=== PATIENT | female | born 1980 | race African-American/Black ===

== ENCOUNTER 2017-10-22 10:54 | Emergency (ER) | payer BC ==
[2017-10-22] MEDS ORDERED: Sodium Chloride 0.9% 1,000 ML IV ONE (11:37)
[2017-10-22] MEDS ORDERED: Ketorolac 30 MG/ML SDV IVPUSH ONE (11:37)
[2017-10-22] MEDS ORDERED: Sodium Chloride 0.9% 10 ML Syringe FLUSH PRN (11:37)
[2017-10-22] MEDS ORDERED: diphenhydrAMINE 50 MG/ML SDV IVPUSH ONE (11:37)
[2017-10-22] MEDS ORDERED: Metoclopramide 10 MG/2 ML SDV IVPUSH ONE (11:37)
--- NOTE | 2017-10-22 11:43 | EDM.PDOC ---
ED HPI GENERAL MEDICAL PROBLEM - General Chief Complaint: Neurological Problem Stated Complaint: DIZZINESS Time Seen by Provider: 10/22/17 11:30 Source of Information: Reports: Patient History Limitations: Reports: No Limitations - History of Present Illness INITIAL COMMENTS - FREE TEXT/NARRATIVE: 37 y/o F, previously healthy, presents with headache and dizziness. Started gradually 3 days ago. Describes it as room spinning dizziness. No provoking factor. Constant. Taking meclizine, no relief. No vomiting. No vision change. No focal weakness. Feels generally weak. No fever. No recent illness. No tinnitus or ear discomfort. No recent cough/nasal congestion. No head injury. Sent here by Brisa Ricks from clinic for evaluation. Headache Pain Score (Numeric/FACES): 3 - Related Data Allergies Allergy/AdvReac Type Severity Reaction Status Date / Time No Known Allergies Allergy Verified 10/22/17 11:07 Home Meds: Home Meds Ibuprofen [IMW: Ibuprofen] 800 mg PO TID PRN #30 tab 10/22/17 [Rx] Meclizine [Antivert] 12.5 mg PO Q4H PRN 10/22/17 [History] Past Medical History - Past Health History Medical/Surgical History: Denies Medical/Surgical History Social & Family History - Tobacco Use Smoking Status *Q: Never Smoker - Caffeine Use Caffeine Use: Reports: Coffee, Tea - Recreational Drug Use Recreational Drug Use: No ED ROS GENERAL - Review of Systems Review Of Systems: See Below Constitutional: Denies: Fever HEENT: Reports: Vertigo Respiratory: Denies: Shortness of Breath, Cough Cardiovascular: Denies: Chest Pain Endocrine: Reports: No Symptoms GI/Abdominal: Denies: Abdominal Pain : Reports: No Symptoms Musculoskeletal: Reports: No Symptoms Skin: Reports: No Symptoms Neurological: Reports: Dizziness, Headache Psychiatric: Reports: No Symptoms ED EXAM, NEURO - Physical Exam Exam: See Below Exam Limited By: No Limitations General Appearance: Alert, WD/WN, No Apparent Distress Eye Exam: Bilateral Eye: EOMI (no nystagmus), PERRL Ears: Normal External Exam Nose: Normal Inspection Throat/Mouth: Normal Inspection, Normal Oropharynx, Normal Voice, No Airway Compromise Head Exam: Atraumatic, Normocephalic Neck: Normal Inspection, Supple Respiratory/Chest: No Respiratory Distress, Lungs Clear, Normal Breath Sounds, No Accessory Muscle Use Cardiovascular: Normal Peripheral Pulses, Regular Rate, Rhythm, No Murmur GI/Abdominal: Soft, Non-Tender, No Distention Neurological: Alert, Normal Mood/Affect, Normal Dorsiflexion, CN II-XII Intact, Normal Plantar Flexion, No Motor/Sensory Deficits, Oriented x 3 Back Exam: Normal Inspection Extremities: Normal Inspection Psychiatric: Normal Affect, Normal Mood Skin Exam: Warm, Dry, Intact, Normal Color, No Rash Course - Vital Signs Last Recorded V/S: Last Vital Signs Temp 36.6 C 10/22/17 11:04 Pulse 78 10/22/17 11:04 Resp 20 10/22/17 11:04 BP 131/65 10/22/17 11:04 Pulse Ox 100 10/22/17 11:04 - Orders/Labs/Meds Orders: Active Orders 24 hr Category Date Time Status Peripheral IV Care [RC] . DIRECTED Care 10/22/17 11:37 Active Peripheral IV Care [RC] . DIRECTED Care 10/22/17 11:37 Active Peripheral IV Insertion Adult [OM.PC] Routine Oth 10/22/17 11:37 Ordered Labs: Laboratory Tests 10/22/17 10/22/17 Range/Units 11:40 11:40 WBC 6.40 (3.98-10.04) K/mm3 RBC 4.05 (3.98-5.22) M/mm3 Hgb 12.3 (11.2-15.7) gm/L Hct 37.6 (34.1-44.9) % MCV 92.8 (79.4-94.8) fl MCH 30.4 (25.6-32.2) pg MCHC 32.7 (32.2-35.5) g/dl RDW Std Deviation 45.9 (36.4-46.3) fL Plt Count 362 (182-369) K/mm3 MPV 8.7 L (9.4-12.3) fl Neut % (Auto) 43.6 (34.0-71.1) % Lymph % (Auto) 45.3 (19.3-51.7) % [place] % (Auto) 8.9 (4.7-12.5) % Eos % (Auto) 1.7 (0.7-5.8) Baso % (Auto) 0.5 (0.1-1.2) % Neut # (Auto) 2.79 (1.56-6.13) K/mm3 Lymph # (Auto) 2.90 (1.18-3.74) K/mm3 [place] # (Auto) 0.57 H (0.24-0.36) K/mm3 Eos # (Auto) 0.11 (0.04-0.36) K/mm3 Baso # (Auto) 0.03 (0.01-0.08) K/mm3 Sodium 141 (136-145) mEq/L Potassium 4.0 (3.5-5.1) mEq/L Chloride 106 (98-107) mEq/L Carbon Dioxide 26 (21-32) mEq/L Anion Gap 13.0 (5-15) BUN 12 (7-18) mg/dL Creatinine 0.9 (0.55-1.02) mg/dL Est Cr Clr Drug Dosing 72.47 mL/min Estimated GFR (MDRD) > 60 (>60) mL/min BUN/Creatinine Ratio 13.3 L (14-18) Glucose 88 (74-106) mg/dL Calcium 8.7 (8.5-10.1) mg/dL Magnesium 2.1 (1.8-2.4) mg/dl Total Bilirubin 0.2 (0.2-1.0) mg/dL AST 23 (15-37) U/L ALT 33 (14-59) U/L Alkaline Phosphatase 59 (46-116) U/L Total Protein 7.1 (6.4-8.2) g/dl Albumin 3.6 (3.4-5.0) g/dl Globulin 3.5 gm/dL Albumin/Globulin Ratio 1.0 (1-2) Meds: Medications Discontinued Medications Generic Name Dose Route Start Last Admin Trade Name Freq PRN Reason Stop Dose Admin Diphenhydramine HCl 25 mg 10/22/17 11:37 10/22/17 11:51 Benadryl IVPUSH 10/22/17 11:38 25 mg ONETIME ONE Administration Sodium Chloride 1,000 mls @ 1,000 mls/hr 10/22/17 11:37 10/22/17 11:49 Normal Saline IV 10/22/17 12:36 1,000 mls/hr ONETIME ONE Administration Ketorolac Tromethamine 30 mg 10/22/17 11:37 10/22/17 11:51 Toradol IVPUSH 10/22/17 11:38 30 mg ONETIME ONE Administration Metoclopramide HCl 10 mg 10/22/17 11:37 10/22/17 11:49 Reglan IVPUSH 10/22/17 11:38 10 mg ONETIME ONE Administration Sodium Chloride 10 ml 10/22/17 11:37 10/22/17 11:51 Saline Flush FLUSH 10 ml ASDIRECTED PRN Administration Keep Vein Open - Re-Assessments/Exams Free Text/Narrative Re-Assessment/Exam: 10/22/17 17:46 Labs show normal CBC and chemistry. She feels much better after migraine cocktail with toradol, reglan, benadryl, and IVF. Her headache has resolved. She 'd like to go home. Encouraged her to f/u with her PCP and return if she feels worse. Departure - Departure Time of Disposition: 13:19 Disposition: Home, Self-Care 01 Clinical Impression: Dizziness Headache Qualifiers: Headache type: unspecified Headache chronicity pattern: acute headache Intractability: not intractable Qualified Code(s): R51 - Headache - Discharge Information Prescriptions: Ibuprofen [IMW: Ibuprofen] 800 mg PO TID PRN #30 tab PRN Reason: Pain Instructions: General Headache Without Cause, Dizziness, [id number] Referrals: Rhoda Ricks P[employer]OVER [Primary Care Provider] - Forms: ED Department Discharge Additional Instructions: 1. Take ibuprofen as needed for headache 2. Follow up with your primary care provider for further care 3. Return to the ED if you have severe headache or other concerning symptoms - My Orders Last 24 Hours: My Active Orders 10/22/17 11:37 Peripheral IV Care [RC] . DIRECTED Peripheral IV Care [RC] . DIRECTED Peripheral IV Insertion Adult [OM.PC] Routine - Assessment/Plan Last 24 Hours: My Active Orders 10/22/17 11:37 Peripheral IV Care [RC] . DIRECTED Peripheral IV Care [RC] . DIRECTED Peripheral IV Insertion Adult [OM.PC] Routine
== END 2017-10-22 13:44 | disposition home or self-care (01) ==
LOC: JD.ED 10:54
DX: R51 Headache (principal); R42 Dizziness and giddiness
CPT/HCPCS: 36415; 80053; 83735; 85025; 96361; 96374; 96375; 99284; J1200; J1885; J2765; J7040; J7050

== ENCOUNTER 2020-05-06 11:30 | Emergency (ER) | payer BC ==
[2020-05-06] MEDS ORDERED: FLU VACC QS2020-21(6MOS UP)/PF 60 MCG/0.5 ML SYRINGE IM ONE (12:45)
[2020-05-06] MEDS ORDERED: Sodium Chloride 0.9% 1,000 ML IV STA (13:34)
[2020-05-06] MEDS ORDERED: Ketorolac 30 MG/ML SDV IVPUSH ONE (13:34)
--- NOTE | 2020-05-06 14:14 | EDM.PDOC ---
ED HPI GENERAL MEDICAL PROBLEM - General Chief Complaint: Headache Stated Complaint: HEADACHE,WEAKNESS,DIZZINESS Time Seen by Provider: 05/06/20 13:02 Source of Information: Reports: Patient, RN Notes Reviewed History Limitations: Reports: No Limitations - History of Present Illness INITIAL COMMENTS - FREE TEXT/NARRATIVE: Patient is a 40-year-old female presenting to the emergency department with complaints of intermittent headaches with dizziness as well as weakness over the last 2 weeks. States that headaches do not occur daily, however she has been having them every few days. She denies any vision changes. She is had no recent head injuries. She has no other symptoms including respiratory complaints, sinus pressure, ear pain, nausea, vomiting, or diarrhea. She is had no fevers. Denies any known sick contacts. Denies possibility of . Denies any history of migraines. She states that she does have a rash within her hair which she has been seen for in the past and prescribed a therapeutic shampoo. She states when she uses a shampoo, it does resolve, however when she stops it returns. It has been over a year since she was last treated with this. She feels this may be contributing to her headaches. Headache Pain Score (Numeric/FACES): 5 - Related Data Allergies Allergy/AdvReac Type Severity Reaction Status Date / Time No Known Allergies Allergy Verified 05/06/20 12:33 Home Meds: Home Meds Ibuprofen [IMW: Ibuprofen] 800 mg PO TID PRN #30 tab 10/22/17 [Rx] Clobetasol Propionate 118 ml TP DAILY #1 shampoo 05/06/20 [Rx] Past Medical History - Past Health History Medical/Surgical History: Denies Medical/Surgical History [employer] History: Reports: Neurological History: Reports: Headaches, Chronic - Past Surgical History Female Surgical History: Reports: Section Social & Family History - Family History Family Medical History: No Pertinent Family History - Tobacco Use Tobacco Use Status *Q: Never Tobacco User - Caffeine Use Caffeine Use: Reports: None - Recreational Drug Use Recreational Drug Use: No ED ROS GENERAL - Review of Systems Review Of Systems: See Below Constitutional: Reports: No Symptoms. Denies: Fever, Chills HEENT: Reports: Other (white, itchy scalp lesions). Denies: Vision Change Respiratory: Reports: No Symptoms Cardiovascular: Reports: No Symptoms Endocrine: Reports: No Symptoms GI/Abdominal: Reports: No Symptoms : Reports: No Symptoms Musculoskeletal: Reports: No Symptoms Skin: Reports: No Symptoms Neurological: Reports: Dizziness, Headache. Denies: Confusion, Paresthesia Psychiatric: Reports: No Symptoms Hematologic/Lymphatic: Reports: No Symptoms Immunologic: Reports: No Symptoms - Physical Exam Exam: See Below Exam Limited By: No Limitations General Appearance: Alert, WD/WN, No Apparent Distress Eye Exam: Bilateral Eye: PERRL Head Exam: Other (thick, white psorotic plaques throughout scalp) Respiratory/Chest: No Respiratory Distress, Lungs Clear, Normal Breath Sounds, No Accessory Muscle Use, Chest Non-Tender Cardiovascular: Normal Peripheral Pulses, Regular Rate, Rhythm, No Edema, No Gallop, No JVD, No Murmur, No Rub (Female) Exam: Normal External Exam, Normal Speculum Exam, Normal Bimanual Exam Neuro Exam (Abbreviated): Alert, Oriented, CN II-XII Intact, Normal Cognition, Normal Gait, Normal Reflexes, No Motor/Sensory Deficits Psychiatric: Normal Affect, Normal Mood Skin Exam: Warm, Dry, Intact, Normal Color, No Rash Course - Vital Signs Last Recorded V/S: Last Vital Signs Temp 98.8 F 05/06/20 12:30 Pulse 79 05/06/20 12:30 Resp 18 05/06/20 12:30 BP 113/73 05/06/20 12:30 Pulse Ox 98 05/06/20 12:30 - Orders/Labs/Meds Labs: Laboratory Tests 05/06/20 05/06/20 05/06/20 Range/Units 13:55 13:59 13:59 WBC 5.74 (3.98-10.04) K/mm3 RBC 3.84 L (3.98-5.22) M/mm3 Hgb 11.5 (11.2-15.7) gm/dl Hct 36.3 (34.1-44.9) % MCV 94.5 (79.4-94.8) fl MCH 29.9 (25.6-32.2) pg MCHC 31.7 L (32.2-35.5) g/dl RDW Std Deviation 45.0 (36.4-46.3) fL Plt Count 421 H (182-369) K/mm3 MPV 8.9 L (9.4-12.3) fl Neut % (Auto) 55.1 (34.0-71.1) % Lymph % (Auto) 31.2 (19.3-51.7) % [place] % (Auto) 11.1 (4.7-12.5) % Eos % (Auto) 1.9 (0.7-5.8) Baso % (Auto) 0.5 (0.1-1.2) % Neut # (Auto) 3.16 (1.56-6.13) K/mm3 Lymph # (Auto) 1.79 (1.18-3.74) K/mm3 [place] # (Auto) 0.64 H (0.24-0.36) K/mm3 Eos # (Auto) 0.11 (0.04-0.36) K/mm3 Baso # (Auto) 0.03 (0.01-0.08) K/mm3 Sodium 139 (136-145) mEq/L Potassium 4.0 (3.5-5.1) mEq/L Chloride 103 (98-107) mEq/L Carbon Dioxide 28 (21-32) mEq/L Anion Gap 12.0 (5-15) BUN 11 (7-18) mg/dL Creatinine 0.9 (0.55-1.02) mg/dL Est Cr Clr Drug Dosing 70.32 mL/min Estimated GFR (MDRD) > 60 (>60) mL/min BUN/Creatinine Ratio 12.2 L (14-18) Glucose 92 (74-106) mg/dL Calcium 8.6 (8.5-10.1) mg/dL Total Bilirubin 0.2 (0.2-1.0) mg/dL AST 19 (15-37) U/L ALT 26 (14-59) U/L Alkaline Phosphatase 60 (46-116) U/L C-Reactive Protein < 0.2 (<1.0) mg/dL Total Protein 7.2 (6.4-8.2) g/dl Albumin 3.5 (3.4-5.0) g/dl Globulin 3.7 gm/dL Albumin/Globulin Ratio 1.0 (1-2) HCG, Qual Negative (NEGATIVE) Urine Color (Yellow) Urine Appearance (Clear) Urine pH (5.0-8.0) Ur Specific [place] (1.005-1.030) Urine Protein (Negative) Urine Glucose (UA) (Negative) Urine Ketones (Negative) Urine Occult Blood (Negative) Urine Nitrite (Negative) Urine Bilirubin (Negative) Urine Urobilinogen (0.2-1.0) Ur Leukocyte Esterase (Negative) Urine RBC (0-5) /hpf Urine WBC (0-5) /hpf Ur Squamous Epith Cells (0-5) /hpf Urine Bacteria (FEW) /hpf Urine Mucus (FEW) /hpf 05/06/20 Range/Units 15:05 WBC (3.98-10.04) K/mm3 RBC (3.98-5.22) M/mm3 Hgb (11.2-15.7) gm/dl Hct (34.1-44.9) % MCV (79.4-94.8) fl MCH (25.6-32.2) pg MCHC (32.2-35.5) g/dl RDW Std Deviation (36.4-46.3) fL Plt Count (182-369) K/mm3 MPV (9.4-12.3) fl Neut % (Auto) (34.0-71.1) % Lymph % (Auto) (19.3-51.7) % [place] % (Auto) (4.7-12.5) % Eos % (Auto) (0.7-5.8) Baso % (Auto) (0.1-1.2) % Neut # (Auto) (1.56-6.13) K/mm3 Lymph # (Auto) (1.18-3.74) K/mm3 [place] # (Auto) (0.24-0.36) K/mm3 Eos # (Auto) (0.04-0.36) K/mm3 Baso # (Auto) (0.01-0.08) K/mm3 Sodium (136-145) mEq/L Potassium (3.5-5.1) mEq/L Chloride (98-107) mEq/L Carbon Dioxide (21-32) mEq/L Anion Gap (5-15) BUN (7-18) mg/dL Creatinine (0.55-1.02) mg/dL Est Cr Clr Drug Dosing mL/min Estimated GFR (MDRD) (>60) mL/min BUN/Creatinine Ratio (14-18) Glucose (74-106) mg/dL Calcium (8.5-10.1) mg/dL Total Bilirubin (0.2-1.0) mg/dL AST (15-37) U/L ALT (14-59) U/L Alkaline Phosphatase (46-116) U/L C-Reactive Protein (<1.0) mg/dL Total Protein (6.4-8.2) g/dl Albumin (3.4-5.0) g/dl Globulin gm/dL Albumin/Globulin Ratio (1-2) HCG, Qual (NEGATIVE) Urine Color Yellow (Yellow) Urine Appearance Clear (Clear) Urine pH 6.5 (5.0-8.0) Ur Specific [place] 1.025 (1.005-1.030) Urine Protein Negative (Negative) Urine Glucose (UA) Negative (Negative) Urine Ketones Negative (Negative) Urine Occult Blood Negative (Negative) Urine Nitrite Negative (Negative) Urine Bilirubin Negative (Negative) Urine Urobilinogen 0.2 (0.2-1.0) Ur Leukocyte Esterase Negative (Negative) Urine RBC 0-5 (0-5) /hpf Urine WBC 0-5 (0-5) /hpf Ur Squamous Epith Cells 20-30 H (0-5) /hpf Urine Bacteria Few (FEW) /hpf Urine Mucus Moderate H (FEW) /hpf Meds: Medications Discontinued Medications Generic Name Dose Route Start Last Admin Trade Name Luisq PRN Reason Stop Dose Admin Sodium Chloride 1,000 mls @ 999 mls/hr 05/06/20 13:34 05/06/20 13:51 Normal Saline IV 05/06/20 14:34 999 mls/hr NOW STA Administration Influenza Virus Vaccine 60 mcg 05/06/20 12:45 05/06/20 16:15 Fluzone Quad [id number] Syringe IM 05/06/20 12:46 Not Given .ONCE ONE Ketorolac Tromethamine 30 mg 05/06/20 13:34 05/06/20 13:51 Toradol IVPUSH 05/06/20 13:35 30 mg ONETIME ONE Administration - Re-Assessments/Exams Free Text/Narrative Re-Assessment/Exam: 40-year-old female presenting to the emergency department with complaints of a thick scaly rash on her scalp, intermittent headaches, and dizziness. She has a history of scalp psoriasis and has been prescribed clobetasol in the past. States this works quite well, however she is out of it. She complains of frequent headaches over the last few weeks associated dizziness. I have ordered a CT scan of the head as well as some baseline lab work. I will give her 1 L bolus of normal saline and Toradol 30 mg IV. 05/06/20 15:47 Patient's work-up was grossly unremarkable. CT scan of the head showed no acute abnormalities. Blood work was normal. Patient is feeling better after the medications given. I will send a prescription for colestipol shampoo. Recommend follow-up in the clinic as needed. Discharge instructions as documented. Departure - Departure Time of Disposition: 15:48 Disposition: Home, Self-Care 01 Condition: Good Clinical Impression: Scalp psoriasis Headache Qualifiers: Headache type: unspecified Headache chronicity pattern: acute headache Intractability: not intractable Qualified Code(s): R51 - Headache - Discharge Information *PRESCRIPTION DRUG MONITORING PROGRAM REVIEWED*: No *COPY OF PRESCRIPTION DRUG MONITORING REPORT IN PATIENT DEANNA: No Prescriptions: Clobetasol Propionate 118 ml TP DAILY #1 shampoo Instructions: General Headache Without Cause, [id number], Psoriasis, [id number] Referrals: PCP,None [Primary Care Provider] - Forms: ED Department Discharge Additional Instructions: You were seen in the ER today for intermittent headaches, dizziness, and a scaly rash on your scalp. Work-up included blood work, and a CT scan of your head. Results of the work-up were found to be normal. While in the ER, you received a liter of IV fluids and Toradol for pain. Recommend that you go home and rest. Continue to use Tylenol or ibuprofen as needed for pain and discomfort. A prescription for clobetasol shampoo has [facility] to [facility]. Uses medication as prescribed for up to 4 weeks only. Recommend follow-up with your primary care provider as needed. Return to ER as needed. Sepsis Event Note (ED) - Evaluation Sepsis Screening Result: No Definite Risk
--- NOTE | 2020-05-06 15:14 | CT ---
PROCEDURE INFORMATION: Exam: CT Head Without Contrast Exam date and time: 05/06/2020 2:37 PM Age: 40 years old Clinical indication: Pain; Dizziness; Headache not specified TECHNIQUE: Imaging protocol: Computed tomography of the head without contrast. Radiation optimization: All CT scans at this facility use at least one of these dose optimization techniques: automated exposure control; mA and/or kV adjustment per patient size (includes targeted exams where dose is matched to clinical indication); or iterative reconstruction. COMPARISON: No relevant prior studies available. FINDINGS: Brain: No hemorrhage, mass effect or midline shift. Cerebral ventricles: No ventriculomegaly. Bones/joints: No acute fracture. Paranasal sinuses: There is opacification of the right sphenoid sinus. Mastoid air cells: Visualized mastoid air cells are well aerated. Soft tissues: No acute changes IMPRESSION: 1. No hemorrhage, mass effect or midline shift. 2. There is opacification of the right sphenoid sinus. Thank you for allowing us to participate in the care of your patient. Dictated and Authenticated by: Adal Ricks DO 05/06/2020 4:10 PM Central Time ([place] & [place]) [facility]
== END 2020-05-06 16:20 | disposition home or self-care (01) ==
LOC: JD.ED 11:30
DX: L40.8 Other psoriasis (principal); R51.9 Headache, unspecified; R42 Dizziness and giddiness
CPT/HCPCS: 36415; 70450; 80053; 81001; 84703; 85025; 86140; 96374; 99284; J1885; J7030

== ENCOUNTER 2020-10-29 12:01 | Emergency (ER) | payer BC ==
[2020-10-29] MEDS ORDERED: Sodium Chloride 0.9% 1,000 ML IV STA (12:39)
[2020-10-29] MEDS ORDERED: Ondansetron 4 MG/2 ML SDV IVPUSH ONE (12:39)
[2020-10-29] MEDS ORDERED: HYDROmorphone 0.5 MG/0.5 ML Syringe IVPUSH ONE (12:39)
[2020-10-29] MEDS ORDERED: Diatrizoate Meglumine/Diatrizoate Sodium 37% 120 ML Bottle PO ONE (14:00)
[2020-10-29] MEDS ORDERED: Sodium Chloride 0.9% 10 ML Syringe FLUSH SCH (14:00)
[2020-10-29] MEDS ORDERED: Iopamidol 612 MG/ML 100 ML Bottle IVPUSH ONE (14:00)
--- NOTE | 2020-10-29 14:53 | EDM.PDOC ---
ED HPI GENERAL MEDICAL PROBLEM - General Chief Complaint: Back Pain or Injury Stated Complaint: PAIN MANAGEMENT SENT FROM [facility] Time Seen by Provider: 10/29/20 12:35 Source of Information: Reports: Patient, Provider, RN Notes Reviewed History Limitations: Reports: No Limitations - History of Present Illness INITIAL COMMENTS - FREE TEXT/NARRATIVE: Patient is a 40-year-old female presenting to the emergency department at the request of her primary care provider, Leydi Ricks NP, for left lateral abdominal and back pain. She was evaluated in the clinic prior to coming here and found to have liver lesions on a noncontrast CT of her abdomen and pelvis. Hemoglobin was also found to be slightly low at 10.6 and CRP was elevated at 4.8. Urinalysis completed in the clinic showed 1+ protein, trace ketones, trace intact occult blood, trace leukocyte esterase, 5-10 WBCs, 10-20 squamous epithelial cells and moderate mucus. Radiologist recommended a contrast CT of her chest abdomen pelvis. She was also sent here for pain control. Patient reports that she has been having this discomfort for approximately last 2 weeks. Denies any urinary symptoms or blood in her urine. She has had no nausea, vomiting, or diarrhea. She has not been taking anything for pain. Patient denies any history of smoking, recreational drug use, or alcohol abuse. 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 Denies: Fever, Chills HEENT: Reports: No Symptoms Respiratory: Reports: No Symptoms Cardiovascular: Reports: No Symptoms Endocrine: Reports: No Symptoms GI/Abdominal: Reports: No Symptoms, Abdominal Pain (left upper lateral). Denies: Diarrhea, Nausea, Vomiting : Reports: No Symptoms Musculoskeletal: Reports: Back Pain (mid back pain) Skin: Reports: No Symptoms Neurological: Reports: No Symptoms Psychiatric: Reports: No Symptoms Hematologic/Lymphatic: Reports: No Symptoms Immunologic: Reports: No Symptoms ED EXAM, GENERAL - Physical Exam Exam: See Below Exam Limited By: No Limitations General Appearance: Alert, WD/WN, No Apparent Distress Respiratory/Chest: No Respiratory Distress, Lungs Clear, Normal Breath Sounds, No Accessory Muscle Use, Chest Non-Tender Cardiovascular: Normal Peripheral Pulses, Regular Rate, Rhythm, No Edema, No Gallop, No JVD, No Murmur, No Rub GI/Abdominal: Normal Bowel Sounds, Soft, No Organomegaly, No Distention, No Abnormal Bruit, No Mass, Tender (left, upper, lateral abdomen) Back Exam: Normal Inspection, Full Range of Motion, Vertebral Tenderness (T10 - T12) Neurological: Alert, Oriented, CN II-XII Intact, Normal Cognition, Normal Gait, Normal Reflexes, No Motor/Sensory Deficits Psychiatric: Normal Affect, Normal Mood Skin Exam: Warm, Dry, Intact, Normal Color, No Rash Course - Vital Signs Last Recorded V/S: Last Vital Signs Temp 99.2 F 10/29/20 14:30 Pulse 72 10/29/20 14:30 Resp 16 10/29/20 14:30 BP 108/75 10/29/20 14:30 Pulse Ox 98 10/29/20 14:30 - Orders/Labs/Meds Orders: Active Orders 24 hr Category Date Time Status Sodium Chloride 0.9% [Normal Saline] 1,000 ml Med 10/29/20 12:39 Active IV NOW Sodium Chloride 0.9% [Saline Flush] Med 10/29/20 14:00 Active 10 ml FLUSH ASDIRECTED Medication Orders Sodium Chloride (Normal Saline) 1,000 mls @ 150 mls/hr IV NOW STA Stop: 10/29/20 19:18 Last Admin: 10/29/20 13:45 Dose: 150 mls/hr Documented by: RADHA Sodium Chloride (Sodium Chloride 0.9% 10 Ml Syringe) 10 ml FLUSH ASDIRECTED TWIN Last Admin: 10/29/20 14:12 Dose: 10 ml Documented by: SAMM Labs: Laboratory Tests 10/29/20 Range/Units 10:16 GGT 74 H (5-55) U/L Meds: Medications Generic Name Dose Route Start Last Admin Trade Name Freq PRN Reason Stop Dose Admin Sodium Chloride 1,000 mls @ 150 mls/hr 10/29/20 12:39 10/29/20 13:45 Normal Saline IV 10/29/20 19:18 150 mls/hr NOW STA Administration Sodium Chloride 10 ml 10/29/20 14:00 10/29/20 14:12 Sodium Chloride 0.9% 10 Ml Syringe FLUSH 10 ml ASDIRECTED TWIN Administration Discontinued Medications Generic Name Dose Route Start Last Admin Trade Name Freq PRN Reason Stop Dose Admin Diatrizoate Meglum/Diatrizoate Sod 120 ml 10/29/20 14:00 10/29/20 14:11 Diatrizoate Meglumine/Diatrizoate Sodium 37% 120 Ml Bottle PO 10/29/20 14:01 45 ml ONETIME ONE Administration Hydromorphone HCl 0.5 mg 10/29/20 12:39 10/29/20 13:48 Hydromorphone 0.5 Mg/0.5 Ml Syringe IVPUSH 10/29/20 12:40 0.5 mg ONETIME ONE Administration Iopamidol 100 ml 10/29/20 14:00 10/29/20 14:11 Iopamidol 612 Mg/Ml 100 Ml Bottle IVPUSH 10/29/20 14:01 100 ml ONETIME ONE Administration Ondansetron HCl 4 mg 10/29/20 12:39 10/29/20 13:46 Ondansetron 4 Mg/2 Ml Sdv IVPUSH 10/29/20 12:40 4 mg ONETIME ONE Administration - Re-Assessments/Exams Free Text/Narrative Re-Assessment/Exam: Patient is a 40-year-old female presenting to the emergency department after being referred by Leydi Henriquez NP. She presented to her with abdominal pain and back pain and was found to have lesions on her liver on a noncontrast CT. I have ordered CT scan of the chest abdomen pelvis with IV and oral contrast as well as IV fluids of NS at 150 mils per hour Dilaudid 0.5 mg IV, and Zofran 4 mg IV. 10/29/20 16:03 Patient reports that her pain has improved. CT scan of the chest abdomen pelvis with contrast impression as follows 1. Multiple nodules within both sides of the chest. Largest nodule measures 1.5 cm. Given the liver findings on prior noncontrast CT abdomen and pelvis study, these findings are felt compatible with metastatic lesions 2. Slight left axillary adenopathy. Impression no CT abdomen pelvis as follows 1. Numerous lesions within the right and left lobes of the liver compatible with multiple metastatic lesions. 2. Several slightly prominent lymph nodes within the retroperitoneum most likely metastatic. 3. Prominence within the pancreatic head. Given liver lesions and pulmonary lesions, this finding is highly suspicious for pancreatic head neoplasm. Questionable thickening of the wall of the duodenal sweep is also noted. 4. Other findings believed to be incidental as noted above. Results discussed with patient. I will discharge her home with a prescription for Percocet for pain. I have spoke to her primary care, Leydi Henriquez NP. She will see her in the clinic tomorrow morning at 9 AM to get her set up with an interventional radiology for biopsies and further management. Patient is in agreement with this. Discharge instructions as documented. Departure - Departure Time of Disposition: 16:06 Disposition: Home, Self-Care 01 Condition: Fair Clinical Impression: Malignant neoplasm metastatic to pancreas - Discharge Information *PRESCRIPTION DRUG MONITORING PROGRAM REVIEWED*: No *COPY OF PRESCRIPTION DRUG MONITORING REPORT IN PATIENT DEANNA: No Prescriptions: Acetaminophen/oxyCODONE [Percocet 325-5 MG] 1 each PO Q4H PRN #20 tab PRN Reason: Pain Referrals: Leydi Henriquez NP [Primary Care Provider] - Forms: ED Department Discharge Additional Instructions: You were seen in the emergency department today for evaluation and back pain as well as lesion seen on a CT scan in the clinic. CT scans of the chest abdomen pelvis were completed in the ER and unfortunately do show numerous lesions within your liver, lungs, as well as likely neoplasm of the pancreatic head. Unfortunately these findings are likely consistent with pancreatic cancer with metastases to these other organs. You have been discharged home on Percocet for pain. Take this medication as prescribed for pain. Do not drive or work for 12 hours after taking his as it can be sedating. A follow-up appointment has been scheduled with Leydi Henriquez NP from 9:00 tomorrow morning. It is imperative that you attend this appointment for ongoing management of this condition. Return to ER for any new or worsening symptoms of concern. Sepsis Event Note (ED) - Evaluation Sepsis Screening Result: No Definite Risk - Focused Exam Vital Signs: Vital Signs Temp Pulse Resp BP Pulse Ox 10/29/20 14:30 99.2 F 72 16 108/75 98 10/29/20 12:26 99.4 F 90 18 116/75 97 - My Orders Last 24 Hours: My Active Orders 10/29/20 12:39 Sodium Chloride 0.9% [Normal Saline] 1,000 ml IV NOW 10/29/20 14:00 Sodium Chloride 0.9% [Saline Flush] 10 ml FLUSH ASDIRECTED - Assessment/Plan Last 24 Hours: My Active Orders 10/29/20 12:39 Sodium Chloride 0.9% [Normal Saline] 1,000 ml IV NOW 10/29/20 14:00 Sodium Chloride 0.9% [Saline Flush] 10 ml FLUSH ASDIRECTED
--- NOTE | 2020-10-29 15:32 | CT ---
CT chest Technique: Multiple axial sections through the chest were obtained. Intravenous contrast was utilized. Reconstructed coronal and sagittal images were obtained. Comparison: No prior chest imaging is available. Findings: Thoracic aorta shows no aneurysm. Mediastinum shows no definite abnormality. No pericardial thickening is appreciated. Scattered small nodules are seen within both upper lungs. Nodules are noted within the right middle lobe and lingula as well as within both lower lobes. Largest nodule is located within the right lower lung measuring 1.5 cm. No definite acute parenchymal change is otherwise seen. Left axillary region shows several slightly enlarged lymph nodes. Largest lymph node measures 1.7 cm. Bone window settings were reviewed which show no acute osseous abnormality. Impression: 1. Multiple nodules within both sides of the chest. Largest nodule measures 1.5 cm. Given the liver findings on prior noncontrast CT abdomen and pelvis study, these findings are felt compatible with metastatic lesions. 2. Slight left axillary adenopathy. 3. No additional abnormality is seen. Diagnostic code #9 CT abdomen and pelvis Technique: Multiple axial sections were obtained from above the dome of the diaphragm inferiorly through the pubic symphysis. Intravenous and oral contrast was utilized. Reconstructed coronal and sagittal images were obtained. Delayed images were also obtained. Comparison: Prior noncontrast CT abdomen and pelvis study performed earlier on the same day. Findings: Numerous liver nodules are seen within the right and left lobes. Largest abnormality is within the posterior right lobe and an inferior location measuring approximately 4.2 x 3.9 cm. Free fluid is seen around the gallbladder. Uncertain as to etiology. Spleen size is normal. Adrenal glands showed with no hydronephrosis or mass. Kidneys show symmetric contrast enhancement. Parapelvic cyst is noted within the right kidney. Delayed images show contrast within the right and left ureters as well as within the bladder. There is fullness being seen within the head of the pancreas. Given the findings within the liver and chest this is very suspicious for a pancreatic mass. This finding measures approximately 4.0 cm in size. Questionable thickening within the duodenal sweep is noted. Several slightly prominent retroperitoneal lymph nodes are seen which are believed to be abnormal. No pelvic mass or adenopathy is appreciated. Bone window settings were reviewed and show no acute osseous abnormality. Impression: 1. Numerous lesions within the right and left lobes of the liver compatible with multiple metastatic lesions. 2. Several slightly prominent lymph nodes within the retroperitoneum most likely metastatic. 3. Prominence within the pancreatic head. Given liver lesions and pulmonary lesions, this finding is highly suspicious for pancreatic head neoplasm. Questionable thickening of the wall of the duodenal sweep is also noted. 4. Other findings believed to be incidental as noted above. Diagnostic code #9
== END 2020-10-29 16:25 | disposition home or self-care (01) ==
LOC: JD.ED 12:01
DX: C25.9 Malignant neoplasm of pancreas, unspecified (principal)
CPT/HCPCS: 36415; 71260; 74177; 82977; 96374; 96375; 99284; J1170; J2405; J7030; Q9963; Q9967

== ENCOUNTER 2020-11-04 09:03 | Emergency (ER) | payer BC ==
[2020-11-04] MEDS ORDERED: Ondansetron 4 MG/2 ML SDV IVPUSH ONE (09:37)
[2020-11-04] MEDS ORDERED: HYDROmorphone 1 MG/ML Syringe IVPUSH ONE (09:37)
[2020-11-04] MEDS ORDERED: Sodium Chloride 0.9% 1,000 ML IV ONE (09:37)
--- NOTE | 2020-11-04 09:38 | EDM.PDOC ---
ED HPI GENERAL MEDICAL PROBLEM - General Chief Complaint: Back Pain or Injury Stated Complaint: BACK PAIN Time Seen by Provider: 11/04/20 09:34 Source of Information: Reports: Patient History Limitations: Reports: No Limitations - History of Present Illness INITIAL COMMENTS - FREE TEXT/NARRATIVE: Presents with persistent right flank pain was seen and evaluated a week ago and was told that she might have cancer. She was given Percocet and has helped some of the pain but it persists. Nothing makes the pain better or worse very constant does not radiate into the groin no burning pain or blood in the urine denies fevers chills or sweats no coughing cold symptoms or chest pain. Lack of appetite today and not sleeping very well. History of 3 C-sections with 3 children otherwise no history of any major medical problems. Middle Back Pain Score (Numeric/FACES): 7 - Related Data Allergies Allergy/AdvReac Type Severity Reaction Status Date / Time No Known Allergies Allergy Verified 11/04/20 09:22 Home Meds: Home Meds . 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 Denies: Shortness of Breath, Cough Cardiovascular: Denies: Chest Pain, Dyspnea on Exertion, Lightheadedness, Palpitations GI/Abdominal: Reports: Abdominal Pain, Decreased Appetite. Denies: Constipation, Diarrhea, Nausea, Vomiting : Reports: Flank Pain. Denies: Dysuria, Frequency, Hematuria, Urgency Musculoskeletal: Reports: Back Pain Skin: Reports: No Symptoms. Denies: Rash Neurological: Reports: No Symptoms. Denies: Headache, Numbness, Paresthesia Psychiatric: Reports: No Symptoms ED EXAM,LOWER BACK PAIN/INJURY - Physical Exam Exam: See Below Exam Limited By: No Limitations General Appearance: Alert, WD/WN, Moderate Distress Throat/Mouth: Normal Oropharynx Head: Atraumatic Neck: Normal Inspection Respiratory/Chest: No Respiratory Distress, Lungs Clear, Normal Breath Sounds Cardiovascular: Normal Peripheral Pulses, Regular Rate, Rhythm, No Edema GI/Abdominal: Normal Bowel Sounds, Soft, Other (Right flank tenderness right upper quadrant pain no rebound rigidity no masses noted no hepatomegaly noted.) Back Exam: CVA Tenderness (R) Extremities: Normal Inspection, No Pedal Edema Neurological: Alert, Normal Mood/Affect Psychiatric: Anxious Skin Exam: Warm Course - Vital Signs Text/Narrative:: Right flank pain rule out malignancy versus renal colic pyelonephritis kidney stone gallbladder disease biliary colic or acute cholecystitis seems less likely a coronary syndrome or PE Last Recorded V/S: Last Vital Signs Temp 96.8 F L 11/04/20 09:19 Pulse 64 11/04/20 11:02 Resp 16 11/04/20 11:02 BP 101/62 11/04/20 09:19 Pulse Ox 100 11/04/20 11:02 - Orders/Labs/Meds Labs: Laboratory Tests 11/04/20 11/04/20 11/04/20 Range/Units 09:51 09:51 09:51 WBC 9.34 (3.98-10.04) K/mm3 RBC 3.85 L (3.98-5.22) M/mm3 Hgb 10.6 L (11.2-15.7) gm/dl Hct 34.0 L (34.1-44.9) % MCV 88.3 (79.4-94.8) fl MCH 27.5 (25.6-32.2) pg MCHC 31.2 L (32.2-35.5) g/dl RDW Std Deviation 45.7 (36.4-46.3) fL Plt Count 541 H (182-369) K/mm3 MPV 8.5 L (9.4-12.3) fl Neut % (Auto) 78.0 H (34.0-71.1) % Lymph % (Auto) 12.1 L (19.3-51.7) % [place] % (Auto) 8.4 (4.7-12.5) % Eos % (Auto) 1.0 (0.7-5.8) Baso % (Auto) 0.3 (0.1-1.2) % Neut # (Auto) 7.29 H (1.56-6.13) K/mm3 Lymph # (Auto) 1.13 L (1.18-3.74) K/mm3 [place] # (Auto) 0.78 H (0.24-0.36) K/mm3 Eos # (Auto) 0.09 (0.04-0.36) K/mm3 Baso # (Auto) 0.03 (0.01-0.08) K/mm3 Sodium 139 (136-145) mEq/L Potassium 3.9 (3.5-5.1) mEq/L Chloride 102 (98-107) mEq/L Carbon Dioxide 24 (21-32) mEq/L Anion Gap 16.9 H (5-15) BUN 14 (7-18) mg/dL Creatinine 1.0 (0.55-1.02) mg/dL Est Cr Clr Drug Dosing 63.28 mL/min Estimated GFR (MDRD) > 60 (>60) mL/min BUN/Creatinine Ratio 14.0 (14-18) Glucose 98 (70-99) mg/dL Lactic Acid 1.2 (0.4-2.0) mmol/L Calcium 8.5 (8.5-10.1) mg/dL Total Bilirubin 0.3 (0.2-1.0) mg/dL AST 142 H (15-37) U/L ALT 139 H (14-59) U/L Alkaline Phosphatase 212 H (46-116) U/L C-Reactive Protein 6.6 H* (<1.0) mg/dL Total Protein 8.1 (6.4-8.2) g/dl Albumin 3.4 (3.4-5.0) g/dl Globulin 4.7 gm/dL Albumin/Globulin Ratio 0.7 L (1-2) Lipase (73-393) U/L Urine Color (Yellow) Urine Appearance (Clear) Urine pH (5.0-8.0) Ur Specific [place] (1.005-1.030) Urine Protein (Negative) Urine Glucose (UA) (Negative) Urine Ketones (Negative) Urine Occult Blood (Negative) Urine Nitrite (Negative) Urine Bilirubin (Negative) Urine Urobilinogen (0.2-1.0) Ur Leukocyte Esterase (Negative) Urine RBC (0-5) /hpf Urine WBC (0-5) /hpf Ur Squamous Epith Cells (0-5) /hpf Urine Bacteria (FEW) /hpf Urine Mucus (FEW) /hpf 11/04/20 11/04/20 Range/Units 09:51 10:58 WBC (3.98-10.04) K/mm3 RBC (3.98-5.22) M/mm3 Hgb (11.2-15.7) gm/dl Hct (34.1-44.9) % MCV (79.4-94.8) fl MCH (25.6-32.2) pg MCHC (32.2-35.5) g/dl RDW Std Deviation (36.4-46.3) fL Plt Count (182-369) K/mm3 MPV (9.4-12.3) fl Neut % (Auto) (34.0-71.1) % Lymph % (Auto) (19.3-51.7) % [place] % (Auto) (4.7-12.5) % Eos % (Auto) (0.7-5.8) Baso % (Auto) (0.1-1.2) % Neut # (Auto) (1.56-6.13) K/mm3 Lymph # (Auto) (1.18-3.74) K/mm3 [place] # (Auto) (0.24-0.36) K/mm3 Eos # (Auto) (0.04-0.36) K/mm3 Baso # (Auto) (0.01-0.08) K/mm3 Sodium (136-145) mEq/L Potassium (3.5-5.1) mEq/L Chloride (98-107) mEq/L Carbon Dioxide (21-32) mEq/L Anion Gap (5-15) BUN (7-18) mg/dL Creatinine (0.55-1.02) mg/dL Est Cr Clr Drug Dosing mL/min Estimated GFR (MDRD) (>60) mL/min BUN/Creatinine Ratio (14-18) Glucose (70-99) mg/dL Lactic Acid (0.4-2.0) mmol/L Calcium (8.5-10.1) mg/dL Total Bilirubin (0.2-1.0) mg/dL AST (15-37) U/L ALT (14-59) U/L Alkaline Phosphatase (46-116) U/L C-Reactive Protein (<1.0) mg/dL Total Protein (6.4-8.2) g/dl Albumin (3.4-5.0) g/dl Globulin gm/dL Albumin/Globulin Ratio (1-2) Lipase 516 H (73-393) U/L Urine Color Yellow (Yellow) Urine Appearance Clear (Clear) Urine pH 6.0 (5.0-8.0) Ur Specific [place] > or = 1.030 (1.005-1.030) Urine Protein 2+ H (Negative) Urine Glucose (UA) Negative (Negative) Urine Ketones 1+ H (Negative) Urine Occult Blood 3+ H (Negative) Urine Nitrite Negative (Negative) Urine Bilirubin 1+ H (Negative) Urine Urobilinogen 1.0 (0.2-1.0) Ur Leukocyte Esterase Negative (Negative) Urine RBC 30-40 H (0-5) /hpf Urine WBC 0-5 (0-5) /hpf Ur Squamous Epith Cells 0-5 (0-5) /hpf Urine Bacteria Few (FEW) /hpf Urine Mucus Few (FEW) /hpf White count is 9300 hemoglobin 10.6 which is stable hematocrit 34 platelet count 541 which is around the same as 18 October sodium 139 potassium 3.9 chloride 102 CO2 is 24 BUN 14 creatinine 1 lactic acid 1.2 AST is 142 ALT 139 alkaline phos 212 always which is somewhat more elevated than on the lipase is 516 analysis clear yellow urine 1.030 spec gravity 2+ protein 3+ blood positive bilirubin 30-40 red cells per high-power field Meds: Medications Discontinued Medications Generic Name Dose Route Start Last Admin Trade Name Freq PRN Reason Stop Dose Admin Hydromorphone HCl 1 mg 11/04/20 09:37 11/04/20 09:54 Hydromorphone 1 Mg/Ml Syringe IVPUSH 11/04/20 09:38 1 mg ONETIME ONE Administration Sodium Chloride 1,000 mls @ 999 mls/hr 11/04/20 09:37 11/04/20 09:53 Normal Saline IV 11/04/20 10:37 999 mls/hr ONETIME ONE Administration Ondansetron HCl 4 mg 11/04/20 09:37 11/04/20 09:53 Ondansetron 4 Mg/2 Ml Sdv IVPUSH 11/04/20 09:38 4 mg ONETIME ONE Administration - Re-Assessments/Exams Free Text/Narrative Re-Assessment/Exam: 11/04/20 12:08 Pain is much better managed at present. She has a cancer appointment at the cancer center at [place] on Wednesday. 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 Dilaudid 2 mg 1 every 4-6 hours as needed for severe pain, Zofran for nausea, return if any fevers, vomiting unable keep down fluids, increasing pain, unable to pass gas or stool per rectum or any worsening symptoms. Sepsis Event Note (ED) - Evaluation Sepsis Screening Result: No Definite Risk - Focused Exam Vital Signs: Vital Signs Temp Pulse Resp BP Pulse Ox 11/04/20 11:02 64 16 100 11/04/20 09:19 96.8 F L 98 20 101/62 100
== END 2020-11-04 12:24 | disposition home or self-care (01) ==
LOC: JD.ED 09:03
DX: C25.9 Malignant neoplasm of pancreas, unspecified (principal)
CPT/HCPCS: 36415; 80053; 81001; 83605; 83690; 85025; 86140; 96374; 96375; 99284; J1170; J2405; J7030; 99283

== ENCOUNTER 2020-11-11 23:15 | Emergency (ER) | payer BC ==
[2020-11-11] MEDS ORDERED: Sodium Chloride 0.9% 10 ML Syringe FLUSH PRN (23:44)
[2020-11-11] MEDS ORDERED: Sodium Chloride 0.9% 1,000 ML IV SCH (23:45)
--- NOTE | 2020-11-11 23:45 | EDM.PDOC ---
ED HPI GENERAL MEDICAL PROBLEM - General Chief Complaint: Abdominal Pain Stated Complaint: ABDOMINAL PAIN Time Seen by Provider: 11/11/20 23:36 Source of Information: Reports: Patient, RN Notes Reviewed - History of Present Illness INITIAL COMMENTS - FREE TEXT/NARRATIVE: 40 yr old female comes in with upper abd pain, most intense R upper abd. She has been having pain for about a month. She is currently undergoing eval for what may be pancreatic cancer. Pt seens unsure of details. She did have a liver biopsy 3 days ago in [place]. There has been some nausea, has vomited once early today. No diarrhea. No fever or chills. No chest or shoulder discomfort. Abd pain does radiate to her back. Abdomen Pain Score (Numeric/FACES): 9 - Related Data Allergies Allergy/AdvReac Type Severity Reaction Status Date / Time No Known Allergies Allergy Verified 11/11/20 23:27 Home Meds: Home Meds HYDROmorphone [Dilaudid] 2 mg PO Q4H PRN #20 tab 11/04/20 [Rx] Ondansetron [Zofran ODT] 4 mg PO Q6H PRN #12 tab.dis 11/04/20 [Rx] Ondansetron [Zofran ODT] 4 mg PO Q8HR PRN #7 tab.dis 11/12/20 [Rx] oxyCODONE HCl/Acetaminophen [Percocet 5-325 mg Tablet] 1 each PO Q6HR PRN #14 tablet 11/12/20 [Rx] Past Medical History - Past Health History Medical/Surgical History: Denies Medical/Surgical History [employer] History: Reports: Neurological History: Reports: Headaches, Chronic Oncologic (Cancer) History: Reports: Pancreatic, Other (See Below) Other Oncologic History: Metastatic to liver - Past Surgical History GI Surgical History: Reports: Other (See Below) Other GI Surgeries/Procedures: Liver biopsy Female Surgical History: Reports: Section Social & Family History - Family History Family Medical History: No Pertinent Family History - Tobacco Use Tobacco Use Status *Q: Unknown Ever Used Tobacco - Caffeine Use Caffeine Use: Reports: None ED ROS GENERAL - Review of Systems Review Of Systems: See Below Constitutional: Denies: Fever, Chills, Diaphoresis HEENT: Reports: No Symptoms Respiratory: Denies: Shortness of Breath, Pleuritic Chest Pain Cardiovascular: Denies: Chest Pain GI/Abdominal: Reports: Abdominal Pain, Nausea, Vomiting. Denies: Diarrhea Musculoskeletal: Reports: Back Pain Skin: Denies: Rash Neurological: Reports: No Symptoms ED EXAM, GI/ABD - Physical Exam Exam: See Below General Appearance: Alert, Moderate Distress Throat/Mouth: Normal Inspection Head: Atraumatic Neck: Supple Respiratory/Chest: No Respiratory Distress, Lungs Clear, Normal Breath Sounds Cardiovascular: Tachycardia GI/Abdominal Exam: Tender (Mild tenderness R upper abd, upper mid abd and mid abd. Lower abd is nontedner). No: Guarding, Rebound Back Exam: No: CVA Tenderness (L), CVA Tenderness (R) Extremities: Normal Inspection Neurological: Alert, No Motor/Sensory Deficits Skin Exam: Warm, Dry Course - Vital Signs Last Recorded V/S: Last Vital Signs Temp 96.6 F L 11/11/20 23:28 Pulse 100 11/11/20 23:28 Resp 20 11/11/20 23:28 BP 113/72 11/11/20 23:28 Pulse Ox 100 11/11/20 23:28 - Orders/Labs/Meds Orders: Active Orders 24 hr Category Date Time Status Peripheral IV Insertion Adult [OM.PC] Stat Oth 11/11/20 23:45 Ordered Labs: Laboratory Tests 11/11/20 11/11/20 Range/Units 23:58 23:58 WBC 12.30 H (3.98-10.04) K/mm3 RBC 3.76 L (3.98-5.22) M/mm3 Hgb 10.3 L (11.2-15.7) gm/dl Hct 32.4 L (34.1-44.9) % MCV 86.2 (79.4-94.8) fl MCH 27.4 (25.6-32.2) pg MCHC 31.8 L (32.2-35.5) g/dl RDW Std Deviation 44.4 (36.4-46.3) fL Plt Count 581 H (182-369) K/mm3 MPV 8.5 L (9.4-12.3) fl Neut % (Auto) 80.4 H (34.0-71.1) % Lymph % (Auto) 10.2 L (19.3-51.7) % [place] % (Auto) 8.5 (4.7-12.5) % Eos % (Auto) 0.4 L (0.7-5.8) Baso % (Auto) 0.2 (0.1-1.2) % Neut # (Auto) 9.89 H (1.56-6.13) K/mm3 Lymph # (Auto) 1.25 (1.18-3.74) K/mm3 [place] # (Auto) 1.05 H (0.24-0.36) K/mm3 Eos # (Auto) 0.05 (0.04-0.36) K/mm3 Baso # (Auto) 0.02 (0.01-0.08) K/mm3 Manual Slide Review Abnormal smear Sodium 132 L (136-145) mEq/L Potassium 3.7 (3.5-5.1) mEq/L Chloride 95 L (98-107) mEq/L Carbon Dioxide 24 (21-32) mEq/L Anion Gap 16.7 H (5-15) BUN 10 (7-18) mg/dL Creatinine 0.8 (0.55-1.02) mg/dL Est Cr Clr Drug Dosing 79.11 mL/min Estimated GFR (MDRD) > 60 (>60) mL/min BUN/Creatinine Ratio 12.5 L (14-18) Glucose 99 (70-99) mg/dL Calcium 8.7 (8.5-10.1) mg/dL Total Bilirubin 1.2 H (0.2-1.0) mg/dL AST 345 H (15-37) U/L ALT 301 H (14-59) U/L Alkaline Phosphatase 613 H (46-116) U/L Total Protein 7.8 (6.4-8.2) g/dl Albumin 3.1 L (3.4-5.0) g/dl Globulin 4.7 gm/dL Albumin/Globulin Ratio 0.7 L (1-2) Lipase 1063 H (73-393) U/L Meds: Medications Discontinued Medications Generic Name Dose Route Start Last Admin Trade Name Freq PRN Reason Stop Dose Admin Hydromorphone HCl 1 mg 11/11/20 23:54 11/12/20 00:03 Hydromorphone 1 Mg/Ml Syringe IVPUSH 11/11/20 23:55 1 mg ONETIME ONE Administration Hydromorphone HCl 0.5 mg 11/12/20 01:13 11/12/20 01:19 Hydromorphone 0.5 Mg/0.5 Ml Syringe IVPUSH 11/12/20 01:14 0.5 mg ONETIME ONE Administration Sodium Chloride 1,000 mls @ 999 mls/hr 11/11/20 23:45 11/12/20 00:03 Normal Saline IV 999 mls/hr ONETIME TWIN Administration Ondansetron HCl 4 mg 11/11/20 23:54 11/12/20 00:03 Ondansetron 4 Mg/2 Ml Sdv IVPUSH 11/11/20 23:55 4 mg ONETIME ONE Administration Sodium Chloride 10 ml 11/11/20 23:44 11/12/20 00:03 Sodium Chloride 0.9% 10 Ml Syringe FLUSH 10 ml ASDIRECTED PRN Administration Keep Vein Open - Re-Assessments/Exams Free Text/Narrative Re-Assessment/Exam: 11/12/20 00:54 Review of ED record of 10/[address] of chest, abd/pelvis showed "multiple lung nodules, liver lesions and prominence of pancreatic head suggestive for pancreatic head neoplasm. 11/12/20 02:56. AST, ALT, alk phos elevated, bili 1.2, lipase 1063. I do not see that lipase was checked the 2 recent ED visits. Good relief of pain after 1.5 mg dilaudid. It sounds like she currently has hydrocodone which this last evening did not help much. Will prescribe percocet 5/325 q 6 hr prn. Discharge instr. as documented. Departure - Departure Time of Disposition: 01:34 Disposition: Home, Self-Care 01 Clinical Impression: Malignant neoplasm metastatic to pancreas Abdominal pain Qualifiers: Abdominal location: upper abdomen, unspecified Qualified Code(s): R10.10 - Upper abdominal pain, unspecified Pancreatitis Qualifiers: Pancreatitis type: unspecified pancreatitis type Acute pancreatitis complication: no infection or necrosis - Discharge Information Prescriptions: oxyCODONE HCl/Acetaminophen [Percocet 5-325 mg Tablet] 1 each PO Q6HR PRN #14 tablet PRN Reason: Pain Ondansetron [Zofran ODT] 4 mg PO Q8HR PRN #7 tab.dis PRN Reason: Nausea/Vomiting Instructions: Acute Pancreatitis, [id number], Abdominal Pain, Adult, [id number] Referrals: Leydi Henriquez, [employer] [Primary Care Provider] - Forms: ED Department Discharge Additional Instructions: Clear liquids and careful bland diet as tolerated. Percocet pain medication q 6 to 8 hr if needed for severe pain. If pain is not severe try get by with 1/2 tab q 6 to 8 hr. Zofran q 6 to 8 hr if needed for nausea or vomiting. Prescription for the zofran has been sent to [facility]. See Leydi Henriquez at the clinic in about 3 to 4 days. Call for appointment. Return to ED as needed, especially if symptoms worsening in any way. Sepsis Event Note (ED) - Evaluation Sepsis Screening Result: No Definite Risk - Focused Exam Vital Signs: Vital Signs Temp Pulse Resp BP Pulse Ox 11/11/20 23:28 96.6 F L 100 20 113/72 100 - My Orders Last 24 Hours: My Active Orders 11/11/20 23:45 Peripheral IV Insertion Adult [OM.PC] Stat - Assessment/Plan Last 24 Hours: My Active Orders 11/11/20 23:45 Peripheral IV Insertion Adult [OM.PC] Stat
[2020-11-11] MEDS ORDERED: Ondansetron 4 MG/2 ML SDV IVPUSH ONE (23:54)
[2020-11-11] MEDS ORDERED: HYDROmorphone 1 MG/ML Syringe IVPUSH ONE (23:54)
[2020-11-12] MEDS ORDERED: HYDROmorphone 0.5 MG/0.5 ML Syringe IVPUSH ONE (01:13)
== END 2020-11-12 01:49 | disposition home or self-care (01) ==
LOC: JD.ED 23:15
DX: C25.9 Malignant neoplasm of pancreas, unspecified (principal); K85.90 Acute pancreatitis without necrosis or infection, unspecified
CPT/HCPCS: 36415; 80053; 83690; 85025; 96374; 96375; 96376; 99284; 99284-25; J1170; J2405; J7030

== ENCOUNTER 2020-11-14 22:16 | Emergency (ER) | payer BC ==
[2020-11-14] MEDS ORDERED: HYDROmorphone 1 MG/ML Syringe IM ONE (22:49)
[2020-11-14] MEDS ORDERED: Ondansetron 4 MG Tab.DIS PO ONE (22:49)
--- NOTE | 2020-11-14 22:55 | EDM.PDOC ---
ED HPI GENERAL MEDICAL PROBLEM - General Chief Complaint: Abdominal Pain Stated Complaint: STOMACH AND BACK PAIN Time Seen by Provider: 11/14/20 22:27 Source of Information: Reports: Patient, Family (Daughter) History Limitations: Reports: No Limitations - History of Present Illness INITIAL COMMENTS - FREE TEXT/NARRATIVE: Mrs. Beltran is a very pleasant 40-year-old woman who, prior medical records indicate, developed abdominal and mid-back pain in early October. A noncontrast CT of her abdomen and pelvis found liver lesions, and a subsequent CT of her chest, abdomen, and pelvis with IV contrast found multiple nodules within both sides of the chest consistent with metastatic lesions, numerous lesions within the right and left lobes of the liver compatible with metastatic lesions, several slightly prominent lymph nodes within the retroperitoneum consistent with metastases, and prominence within the pancreatic head, consistent with pancreatic cancer. She subsequently underwent a liver biopsy this past 11/08/2020, which the patient tells me at this time was positive for metastatic pancreatic cancer. She states that she is waiting for a phone call to make an appointment with an Oncologist. This is the patient's fourth visit to this ED for epigastric and mid-back pain. She has been prescribed [place] 5/325, Percocet 5/325, and Dilaudid 2 mg, but now presents stating that she has only 2 tablets of Dilaudid remaining, and she would like a refill of it. She has in her possession a bottle of [place], but states that she does not take it, because it causes nausea and vomiting. She also states that she is out of Zofran. Here in the ED, the patient is found to be mildly tachycardic at 112 bpm, otherwise, she is hemodynamically stable, afebrile, saturating 90% on room air. She appears to be quite uncomfortable, but in no acute distress. In addition to the abdominal and mid back pain, the patient also reports having occasional nausea, vomiting, and weight loss. Otherwise, the patient denies having a recent fever, chills, sore throat, ear pain, nasal or sinus congestion, cough, dyspnea, chest pain, palpitations, diarrhea, urinary symptoms, recent bloody bowel movements or black bowel movements, recent joint aches, headaches, or rashes. The patient's PCP is Leydi Henriquez NP. Her Oncologist is going to be Dr. Rafiq Dillon. Left Middle Back Pain Score (Numeric/FACES): 9 - Related Data Allergies Allergy/AdvReac Type Severity Reaction Status Date / Time No Known Allergies Allergy Verified 11/14/20 22:24 Home Meds: Home Meds HYDROmorphone [Dilaudid] 2 mg PO Q4H PRN #20 tab 11/04/20 [Rx] Ondansetron [Zofran ODT] 4 mg PO Q6H PRN #12 tab.dis 11/04/20 [Rx] Ondansetron [Zofran ODT] 4 mg PO Q8HR PRN #7 tab.dis 11/12/20 [Rx] oxyCODONE HCl/Acetaminophen [Percocet 5-325 mg Tablet] 1 each PO Q6HR PRN #14 tablet 11/12/20 [Rx] HYDROmorphone [Dilaudid] 1 tab PO Q4H PRN #20 tab 11/14/20 [Rx] Ondansetron [Zofran ODT] 1 tab PO Q8H PRN #20 tab.dis 11/14/20 [Rx] Past Medical History Oncologic (Cancer) History: Reports: Pancreatic (Stage IV) - Past Surgical History Female Surgical History: Reports: Section (x 3) Oncologic Surgical History: Reports: Other (See Below) (Liver bx 11/08/2020) Social & Family History - Tobacco Use Tobacco Use Status *Q: Never Tobacco User - Caffeine Use Caffeine Use: Reports: None - Recreational Drug Use Recreational Drug Use: No ED ROS GENERAL - Review of Systems Review Of Systems: Comprehensive ROS is negative, except as noted in HPI. ED EXAM, GENERAL - Physical Exam Exam: See Below Exam Limited By: No Limitations General Appearance: Alert, WD/WN, Mild Distress (appears uncomfortable) Eye Exam: Bilateral Eye: EOMI, Normal Inspection Ears: Normal External Exam, Hearing Grossly Normal Nose: Normal Inspection Throat/Mouth: Normal Inspection, Normal Lips, Normal Voice, No Airway Compromise Head: Atraumatic, Normocephalic Neck: Normal Inspection, Full Range of Motion Respiratory/Chest: No Respiratory Distress, Lungs Clear, Normal Breath Sounds, No Accessory Muscle Use Cardiovascular: Normal Peripheral Pulses, No Edema, No Gallop, No JVD, No Murmur, No Rub, Tachycardia (regular) Peripheral Pulses: 3+: Radial (L), Radial (R) GI/Abdominal: Normal Bowel Sounds, Soft, No Organomegaly, No Distention, No Abnormal Bruit, Tender (Reproducible, in the epigastrium only. Nontender elsewhere.), Mass (epigastric - firm) Back Exam: Normal Inspection, Full Range of Motion, NT Extremities: Normal Inspection, Normal Range of Motion, No Pedal Edema, Normal Capillary Refill Neurological: Alert, Oriented, Normal Cognition, No Motor/Sensory Deficits Psychiatric: Anxious Skin Exam: Warm, Dry, Intact, Normal Color, No Rash Course - Vital Signs Last Recorded V/S: Last Vital Signs Temp 36.8 C 11/14/20 22:24 Pulse 112 H 11/14/20 22:24 Resp 16 11/14/20 22:24 BP 110/74 11/14/20 22:24 Pulse Ox 98 11/14/20 22:24 - Orders/Labs/Meds Orders: Active Orders 24 hr Category Date Time Status HYDROmorphone [Dilaudid] Med 11/14/20 22:49 Once 1 mg IM ONETIME ONE Ondansetron [Zofran ODT] Med 11/14/20 22:49 Once 4 mg PO ONETIME ONE - Re-Assessments/Exams Free Text/Narrative Re-Assessment/Exam: 11/14/20 22:50 As above, the patient has metastatic pancreatic cancer with significant epigastric and mid-back pain. She has 2 tablets of oral Dilaudid 2 mg at home, and is here for a refill of the prescription. She has [place] 5/325, but has not been taking them, as they cause her to have nausea and vomiting. She also states that she does not have any Zofran. For today's purposes, the patient will be given 1 mg of IM Dilaudid and 4 mg of oral Zofran, and I will discharge her home with a prescription for oral Dilaudid 2 mg, 1 tab po Q 4 hrs prn pain, #20 and Zofran ODT, 1 tab po Q 8 hrs prn N/V, #20, however, I instructed the patient that in the future, she will need to get refills of her medications via her PCP or Oncologist, not in the ED. The patient expressed understanding. Departure - Departure Time of Disposition: 22:52 Disposition: Home, Self-Care 01 Condition: Good Clinical Impression: Pancreatic malignant neoplasm - Discharge Information *PRESCRIPTION DRUG MONITORING PROGRAM REVIEWED*: Not Applicable *COPY OF PRESCRIPTION DRUG MONITORING REPORT IN PATIENT DEANNA: Not Applicable Prescriptions: HYDROmorphone [Dilaudid] 1 tab PO Q4H PRN #20 tab PRN Reason: Pain (Severe 7-10) Ondansetron [Zofran ODT] 1 tab PO Q8H PRN #20 tab.dis PRN Reason: Nausea/Vomiting Referrals: Leydi Henriquez NP [Primary Care Provider] - Rafiq Dillon MD [Ordering Only Provider] - Additional Instructions: You were seen in the emergency room for continued abdominal and mid-back pain due to pancreatic cancer. You were given a single intramuscular dose of the pain medicine Dilaudid and a single oral dose of the antinausea medicine Zofran in the ER. You were given prescriptions to refill your oral Dilaudid and oral Zofran. Take as prescribed. As discussed, future prescription refills will need to be submitted by your PCP, Leydi Henriquez NP, or your Oncologist, Dr. Rafiq Dillon. If any other problems, please do not hesitate to return to the ER. Sepsis Event Note (ED) - Evaluation Sepsis Screening Result: No Definite Risk - Focused Exam Vital Signs: Vital Signs Temp Pulse Resp BP Pulse Ox 11/14/20 22:24 36.8 C 112 H 16 110/74 98 - My Orders Last 24 Hours: My Active Orders 11/14/20 22:49 HYDROmorphone [Dilaudid] 1 mg IM ONETIME ONE Ondansetron [Zofran ODT] 4 mg PO ONETIME ONE - Assessment/Plan Last 24 Hours: My Active Orders 11/14/20 22:49 HYDROmorphone [Dilaudid] 1 mg IM ONETIME ONE Ondansetron [Zofran ODT] 4 mg PO ONETIME ONE
== END 2020-11-14 23:05 | disposition home or self-care (01) ==
LOC: JD.ED 22:16
DX: C25.9 Malignant neoplasm of pancreas, unspecified (principal)
CPT/HCPCS: 96372; 99283; A9270; J1170